=== PATIENT | female | born 1965 ===

== ENCOUNTER 2018-08-10 13:22 | Emergency (ER) | payer MEDICAID, OTHER ==
[2018-08-10 13:42] VITALS: TEMP 97.9
[2018-08-10 15:07] VITALS: BP 128/74; PULSE 64; RESP 18; O2SAT 100
--- NOTE | 2018-08-10 15:14 | ED PDOC ---
HPI: General Adult Time Seen by Provider: 08/10/18 14:00 Chief Complaint (Nursing): Headache Chief Complaint (Provider): Neck Pain History Per: Patient History/Exam Limitations: no limitations Onset/Duration Of Symptoms: Days Current Symptoms Are (Timing): Still Present Additional Complaint(s): 53 year old female presents to the ER for an evaluation of ongoing lower neck pain onset for 5 days associated with headache and tactile fever. 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 Reports of increased pain on left-side of neck that is worse with movement. She states she does not have a PMD and is requesting blood work for general health. Her headache has resolved now and she took no medicine prior to arrival. Additionally, she had abdominal discomfort after eating stake. Denies abdominal pain. Past Medical History Reviewed: Historical Data, Nursing Documentation, Vital Signs Vital Signs: Last Vital Signs Temp 97.9 F 08/10/18 13:40 Pulse 64 08/10/18 15:00 Resp 18 08/10/18 15:00 BP 128/74 08/10/18 15:00 Pulse Ox 100 08/10/18 15:00 - Medical History PMH: Hypercholesterolemia - Surgical History Surgical History: Appendectomy - Family History Family History: States: Unknown Family Hx - Social History Current smoker - smoking cessation education provided: No Alcohol: None Drugs: Denies - Home Medications Home Medications: Ambulatory Orders Medication Instructions Recorded Famotidine [Pepcid] 20 mg PO BID #10 tab 08/10/18 Ibuprofen [Motrin] 600 mg PO Q8 PRN #21 tab 08/10/18 diaZEpam [Valium] 5 mg PO Q8 PRN #3 tab 08/10/18 - Allergies Allergies/Adverse Reactions: Allergies Allergy/AdvReac Type Severity Reaction Status Date / Time No Known Allergies Allergy Verified 08/10/18 13:40 Review of Systems ROS Statement: Except As Marked, All Systems Reviewed And Found Negative Constitutional: Positive for: Fever Gastrointestinal: Negative for: Abdominal Pain Musculoskeletal: Positive for: Neck Pain (left side ) Neurological: Negative for: Headache Physical Exam - Reviewed Nursing Documentation Reviewed: Yes Vital Signs Reviewed: Yes - Physical Exam Appears: Positive for: Non-toxic, No Acute Distress Head Exam: Positive for: ATRAUMATIC, NORMAL INSPECTION, NORMOCEPHALIC Skin: Positive for: Normal Color, Warm, Dry. Negative for: Rash Neck: Positive for: Decreased ROM (reproducible left neck tenderness) Gastrointestinal/Abdominal: Positive for: Normal Exam. Negative for: Tenderness, Guarding, Rebound Neurologic/Psych: Positive for: Alert, Oriented (x3). Negative for: Motor/Sensory Deficits - ECG O2 Sat by Pulse Oximetry: 100 (RA) Pulse Ox Interpretation: Normal Medical Decision Making Medical Decision Making: Time: 1404 Initial Plan: Pepcid 20mg Acetaminophen 975mg Reevaluation Repeat BP was 128/74 Scribe Attestation: Documented by Renetta Marsh, acting as a scribe for Isamar Carrero PA-C Provider Scribe Attestation: All medical record entries made by the Scribe were at my direction and personally dictated by me. I have reviewed the chart and agree that the record accurately reflects my personal performance of the history, physical exam, medical decision making, and the department course for this patient. I have also personally directed, reviewed, and agree with the discharge instructions and disposition. Disposition - Clinical Impression Clinical Impression: Neck muscle strain, Gastritis - Patient ED Disposition Is Patient to be Admitted: No - Disposition Referrals: [facility] [Outside] Disposition: Routine/Home Disposition Time: 15:20 Condition: FAIR Prescriptions: diaZEpam [Valium] 5 mg PO Q8 PRN #3 tab PRN Reason: Muscle Spasm Famotidine [Pepcid] 20 mg PO BID #10 tab Ibuprofen [Motrin] 600 mg PO Q8 PRN #21 tab PRN Reason: Pain, Moderate (4-7) Instructions: Cervical Muscle Strain (DC), Neck Sprain (DC), Ulcer and Divine ritis Diet Forms: Offsite [facility] ([place]ish), [facility] ED School/Work Excuse Print Language: [id number]
== END 2018-08-10 15:16 | disposition home or self-care (01) ==
LOC: H.ER 13:22
DX: S16.1XXA Strain of muscle, fascia and tendon at neck level, initial encounter (principal); K29.70 Gastritis, unspecified, without bleeding; E78.00 Pure hypercholesterolemia, unspecified